=== PATIENT | male | born 1935 | race Caucasian/White ===

== ENCOUNTER 2017-09-01 18:56 | Emergency (ER) | payer MEDICARE ==
[~2017-09-01] VITALS: Ht 182.9 cm; Wt 75.0 kg
[2017-09-01] MEDS ORDERED: SODIUM CHLORIDE 0.9% 1,000ML IVBOLUS ONE (19:30)
[2017-09-01 19:32] LABS: HEMATOCRIT 40.1 % (39.2-51.8); HEMOGLOBIN 13.4 g/dL (13.7-18.0); WHITE BLOOD COUNT 5.4 x10^3/uL (3.4-10)
[2017-09-01 19:43] LABS: BLOOD UREA NITROGEN 34 mg/dL (7-18)
[2017-09-01] MEDS ORDERED: LIDOCAINE 2%, 20ML INFIL ONE (20:00)
[2017-09-01] MEDS ORDERED: LIDOCAINE 1%, 10ML ONE (20:12)
[2017-09-01] MEDS ORDERED: LIDOCAINE 1%, 20ML INFIL ONE (20:30)
[2017-09-01 21:18] VITALS: BP 162/93
[2017-09-01] MEDS ORDERED: INSULIN REGULAR 100 UNITS/ML, 3ML VIAL IVPush ONE (22:00)
== END 2017-09-02 00:33 | disposition home or self-care (01) ==
LOC: ED 23:05
DX: S01.01XA Laceration without foreign body of scalp, initial encounter (principal); S06.0X0A Concussion without loss of consciousness, initial encounter; E11.65 Type 2 diabetes mellitus with hyperglycemia; Z79.4 Long term (current) use of insulin; Z87.891 Personal history of nicotine dependence; W01.0XXA Fall on same level from slipping, tripping and stumbling without subsequent striking against object, initial encounter; Y93.89 Activity, other specified; Y92.098 Other place in other non-institutional residence as the place of occurrence of the external cause; Y99.8 Other external cause status
CPT/HCPCS: 12002; 36415; 70450; 80048; 82040; 82962; 85025; 96360; 96361; 99285; J7030